=== PATIENT | female | born 2000 | race Caucasian/White ===

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

== ENCOUNTER → 2019-05-20 | Outpatient (CLI) | payer OTHER | LOC: ULTRA 08:57 | DX: R11.0 Nausea (principal); R19.7 Diarrhea, unspecified ==

== ENCOUNTER → 2021-03-09 | Outpatient (CLI) | payer OTHER | LOC: RAD 09:09 | PROVIDERS: ATTEND Nurse Practitioner | DX: N85.8 Other specified noninflammatory disorders of uterus (principal); R10.2 Pelvic and perineal pain; R11.0 Nausea ==

== ENCOUNTER → 2021-03-19 | Outpatient (CLI) | payer OTHER | LOC: MRI 03-14 11:09 | PROVIDERS: ATTEND Nurse Practitioner | DX: D26.9 Other benign neoplasm of uterus, unspecified (principal) ==